=== PATIENT | female | born 1985 | race Caucasian/White ===

== ENCOUNTER 2017-07-05 04:22 | Inpatient (IN) | payer OTHER ==
--- NOTE | 2017-07-05 04:23 | EDPHY ---
H & P Time Seen by Provider: 07/05/17 04:23 HPI/ROS: HPI CHIEF COMPLAINT: Severe abdominal pain HISTORY OF PRESENT ILLNESS: This patient 31-year-old female she is otherwise healthy no significant medical history does not take any daily medications she presents emergency room with abdominal pain. She states around 6:00 p.m. 2 nights ago she develops with nausea and generalized crampy abdominal pain. Over the past 48 hr her abdominal pain has gotten worse and now rather severe the pain is located in right lower quadrant and pelvic region. She is most focally tender in her right lower quadrant. She endorses low-grade fever. She has had vomiting and nausea. No diarrhea. States the pain became worse tonight and decided come the emergency room by private vehicle. She does report to me that on her ride over by private vehicle every bump that she had caused her pain. Additionally she states she prefers not to lay flat or stand up straight because it causes or abdominal pain. She denies any back pain. Denies urinary symptoms. She does report to me she has irregular menstrual. She has a copper IUD. She denies being . She states she has been light spotting all month. Otherwise no significant vaginal discharge. The pain is rather sharp stabbing relentless. Currently 12/26. Past Medical History: No medical history Past Surgical History: No surgical history Social History: Lives locally denies drugs alcohol tobacco. Family History: Noncontributory ROS REVIEW OF SYSTEMS: A comprehensive 10 point review of systems is otherwise negative aside from elements mentioned in the history of present illness. Exam Constitutional appears uncomfortable however nontoxic, dehydrated on exam, triage nursing summary reviewed, vital signs reviewed, awake/alert. Eyes normal conjunctivae and sclera, EOMI, PERRLA. HENT normal inspection, atraumatic, dry mucous membranes, dry lips, no epistaxis, neck supple/ no meningismus, no raccoon eyes. Respiratory clear to auscultation bilaterally, normal breath sounds, no respiratory distress, no wheezing. Cardiovascular rate normal, regular rhythm, no murmur, no edema, distal pulses normal. Gastrointestinal tenderness palpation diffusely, worse in the right lower quadrant, additionally tenderness on bilateral adnexal pain on exam, no rebound , no guarding, normal bowel sounds, no distension, no pulsatile mass. Genitourinary no CVA tenderness. Musculoskeletal no midline vertebral tenderness, full range of motion, no calf swelling, no tenderness of extremities, no meningismus, good pulses, neurovascularly intact. Skin pink, warm, & dry, no rash, skin atraumatic. Neurologic awake, alert and oriented x 3, AAOx3, moves all 4 extremities equally, motor intact, sensory intact, CN II-XII intact, normal cerebellar, normal vision, normal speech. Psychiatric normal mood/affect. Heme/Lymph/Immune no lymphadenopathy. Differential diagnosis includes but is not limited to and in no particular order : Ruptured ovarian cyst, ovarian torsion, ectopic , acute appendicitis , appendicitis with perforation Bowel obstruction, gallbladder disease, diverticulitis, colitis, enteritis, perforated viscus, gastritis, GERD, esophagitis, urinary tract infection, pyelonephritis, kidney stones Medical Decision Making: Plan for this patient IV establishment with blood work , IV fluids 1 L normal saline, IV Dilaudid 1 mg for pain control, 4 mg IV Zofran , basic blood work, UA, test, proceed with CT scan abdomen pelvis with IV contrast re-evaluate. Re-evaluation: 0614AM: CT scan abdomen pelvis with IV contrast called to me by Dr. Tutu Bryan, this shows most likely acute appendicitis the appendix is dilated at 9.5 mm however unable to visualize the tip. There is a moderate amount of complex free fluid in the pelvic region. No large ovarian cyst. Dr. Matt Bryan feels this may be ruptured appendicitis. Additionally there is some small bowel loops that are inflamed. He questions if there is enteritis. Patient has not had any diarrhea. Her blood work has been reviewed shows elevated white blood cell count she does have significant tenderness on exam. I will consult surgery for further evaluation of this. 0620: I have consulted Dr. Cramer surgery about this patient. Given her findings on CT scan, white blood cell count abdominal pain. He will come and see and evaluate the patient. He does recommend the patient gets 1 g IV Invanz which I have ordered. She is getting a 3rd L fluid. And another mg of Dilaudid for acute pain control. Source: Patient Constitutional: Initial Vital Signs Temperature (C) 36.4 C 07/05/17 04:25 Heart Rate 100 07/05/17 04:25 Respiratory Rate 20 07/05/17 04:25 Blood Pressure 96/64 L 07/05/17 04:25 O2 Sat (%) 93 04/19/18 04:25 O2 Delivery Mode Nasal Cannula O2 (L/minute) 2 Allergies/Adverse Reactions: No Known Allergies Allergy (Unverified 07/05/17 04:25) Home Medications: Medication Instructions Recorded Multivitamins [Multivitamin (*)] 1 each PO DAILY 07/05/17 Naproxen Sodium [Aleve 220 MG (*)] 220 mg PO DAILY PRN 07/05/17 Medical Decision Making - Data Points Laboratory Results: Laboratory Results 07/05/17 04:40 07/05/17 04:40 Medications Given: Acetaminophen (Tylenol) 1,000 mg PO Q8H [facility] Stop: 01/01/18 09:14 Last Admin: 07/05/17 17:18 Dose: Not Given Enoxaparin Sodium (Lovenox) 30 mg SC BID [facility] Stop: 01/01/18 20:59 Last Admin: 07/05/17 20:46 Dose: 30 mg Hydromorphone HCl (Dilaudid) 0.2 - 0.4 mg IVP Q1HR PRN PRN Reason: Pain, Breakthrough Stop: 07/15/17 09:02 Last Admin: 07/05/17 17:16 Dose: 0.4 mg Lactated Ringer's (Lr) 1,000 mls @ 100 mls/hr IV CONT [facility] Stop: 01/01/18 09:29 Last Admin: 07/05/17 21:52 Dose: 1,000 mls Ketorolac Tromethamine (Toradol) 30 mg IVP Q6H [facility] Stop: 07/10/17 20:29 Last Admin: 07/05/17 20:46 Dose: 30 mg Discontinued Medications Cefazolin Sodium (Ancef Syringe) Confirm Administered Dose 2 gm .ROUTE .STK-MED ONE Stop: 07/05/17 07:07 Last Admin: 07/05/17 08:17 Dose: Not Given Cefazolin Sodium (Ancef Syringe) Confirm Administered Dose 1 gm .ROUTE .STK-MED ONE Stop: 07/05/17 07:33 Last Admin: 07/05/17 08:17 Dose: 1 gm Cefazolin Sodium (Ancef Syringe) Confirm Administered Dose 1 gm .ROUTE .STK-MED ONE Stop: 07/05/17 08:40 Last Admin: 07/05/17 17:18 Dose: Not Given Ertapenem (Invanz) 1 gm IV EDNOW ONE PRN Reason: Protocol Stop: 07/05/17 06:20 Last Admin: 07/05/17 06:56 Dose: 1 gm Fentanyl (Sublimaze) 25 - 100 mcg IVP Q5M PRN PRN Reason: PACU, IMMEDIATE Pain control Stop: 07/05/17 08:25 Last Admin: 07/05/17 09:31 Dose: 25 mcg Heparin Sodium (Porcine) (Heparin Sc Injection) Confirm Administered Dose 10, 000 unit .ROUTE .STK-MED ONE Stop: 07/05/17 07:07 Last Admin: 07/05/17 08:19 Dose: 10,000 unit Heparin Sodium (Porcine) (Heparin Sc Injection) Confirm Administered Dose 5,000 unit .ROUTE .STK-MED ONE Stop: 07/05/17 07:32 Last Admin: 07/05/17 08:37 Dose: 5,000 unit Heparin Sodium (Porcine) (Heparin Sc Injection) Confirm Administered Dose 5,000 unit .ROUTE .STK-MED ONE Stop: 07/05/17 08:40 Last Admin: 07/05/17 17:17 Dose: Not Given Hydromorphone HCl (Dilaudid) 1 mg IVP EDNOW ONE Stop: 07/05/17 04:39 Last Admin: 07/05/17 04:49 Dose: 1 mg Hydromorphone HCl (Dilaudid) 1 mg IVP EDNOW ONE Stop: 07/05/17 06:21 Last Admin: 07/05/17 06:22 Dose: 1 mg Sodium Chloride (Ns) 1,000 mls @ 0 mls/hr IV EDNOW ONE; Wide Open PRN Reason: Protocol Stop: 07/05/17 04:39 Last Admin: 07/05/17 04:47 Dose: 1,000 mls Sodium Chloride (Ns) 1,000 mls @ 0 mls/hr IV ONCE ONE PRN Reason: Wide Open Stop: 07/05/17 04:44 Last Admin: 07/05/17 04:48 Dose: 1,000 mls Sodium Chloride (Ns) 1,000 mls @ 0 mls/hr IV ONCE ONE PRN Reason: Wide Open Stop: 07/05/17 06:21 Last Admin: 07/05/17 06:22 Dose: 1,000 mls Lactated Ringer's (Lr) 1,000 mls @ 0 mls/hr IV ONCE ONE; TKO PRN Reason: Protocol Stop: 07/05/17 06:59 Last Admin: 07/05/17 07:26 Dose: 1,000 mls Ketorolac Tromethamine (Toradol) 30 mg IVP Q6HRS [facility] Stop: 07/10/17 11:59 Last Admin: 07/05/17 18:41 Dose: Not Given Midazolam HCl (Versed) 2 mg IVP ONCALL ONE Stop: 07/05/17 07:24 Last Admin: 07/05/17 07:33 Dose: 2 mg Ondansetron HCl (Zofran) 4 mg IVP EDNOW ONE Stop: 07/05/17 04:39 Last Admin: 07/05/17 04:48 Dose: 4 mg Departure - Departure Disposition: To OP Cath/Surgery Clinical Impression: Peritonitis Acute appendicitis Qualifiers: Acute appendicitis type: with localized peritonitis Qualified Code(s): K35.3 - Acute appendicitis with localized peritonitis
[2017-07-05] MEDS ORDERED: ONDANSETRON 4 MG/2 ML VIAL IVP ONE (04:38)
[2017-07-05] MEDS ORDERED: HYDROmorphONE/DILAUDID 2 MG/ML INJ IVP ONE ×2 (04:38→06:20)
[2017-07-05] MEDS ORDERED: NS 1,000 ML IV ONE ×3 (04:38→06:20)
[2017-07-05] MEDS ORDERED: IOPAMIDOL (ISOVUE-300) 100 ML BTL ONE (04:56)
[2017-07-05 05:07] LABS: PLATELET COUNT 292 10^3/uL (150-400)
[2017-07-05] MEDS ORDERED: ERTAPENEM 1 GM VIAL IV ONE (06:19)
[2017-07-05] MEDS ORDERED: LR 1,000 ML IV ONE (06:58)
[2017-07-05] MEDS ORDERED: ceFAZolin 1 GM/5 ML SYR ONE ×3 (07:06→08:39)
[2017-07-05] MEDS ORDERED: HEPARIN 5,000 UNIT/0.5 ML SYR ONE ×3 (07:06→08:39)
[2017-07-05] MEDS ORDERED: MIDAZOLAM 2 MG/2 ML VIAL IVP ONE (07:23)
--- NOTE | 2017-07-05 07:24 | PDANEPAE ---
ANE Past Medical History - Pulmonary History Hx Oxygen in Use at Home: No Hx Sleep Apnea: No - Endocrine History Hx Diabetes: No ANE Review of Systems Review of Systems: ANE Patient History - Allergies Allergies/Adverse Reactions: No Known Allergies Allergy (Unverified 07/05/17 04:25) - NPO status NPO Since - Liquids (Date): 07/05/17 NPO Since - Solids (Date): 07/03/17 - Anes Hx Anes Hx: no prior problems - Smoking Hx Smoking Status: Former smoker ANE Labs/Vital Signs - Labs Result Diagrams: 07/05/17 04:40 07/05/17 04:40 - Vital Signs Blood Pressure: 116/69 Heart Rate: 97 Respiratory Rate: 16 O2 Sat (%): 100 Height: 170.18 cm Weight: 54.431 kg ANE Physical Exam - Airway Neck exam: FROM Mallampati Score: Class 1 Mouth exam: normal dental/mouth exam - Pulmonary Pulmonary: no respiratory distress, no rales or rhonchi, clear to auscultation - Cardiovascular Cardiovascular: regular rate and rhythym, no murmur, rub, or gallop - ASA Status ASA Status: II, E ANE Anesthesia Plan Anesthesia Plan: general endotracheal anesthesia
[2017-07-05] MEDS ORDERED: ONDANSETRON 4 MG/2 ML VIAL IVP PRN ×2 (07:25→09:03)
[2017-07-05] MEDS ORDERED: NALOXONE HCL 0.4 MG/ML INJ IVP PRN (07:25)
[2017-07-05] MEDS ORDERED: NS 500 ML IV PRN (07:25)
[2017-07-05] MEDS ORDERED: ceFAZolin 2 GM/SWFI 20 ML SYR IVP ONE (07:25)
[2017-07-05] MEDS ORDERED: HYDROCODONE/APAP 5/325 TAB PO PRN (07:25)
[2017-07-05] MEDS ORDERED: MEPERIDINE 25 MG/ML SYR IVP PRN (07:25)
[2017-07-05] MEDS ORDERED: PROMETHAZINE HCL 25 MG/ML INJ IVP PRN (07:25)
--- NOTE | 2017-07-05 07:29 | GHP ---
[f rep st] PREOP HISTORY AND PHYSICAL DATE OF ADMISSION: 07/05/2017 ADMITTING DIAGNOSIS: Acute appendicitis with appendicolith and peritonitis. HISTORY: The patient is a 31-year-old female who 2 nights ago at dinner felt nauseous after eating a large volume for dinner. She attributed to just the overeating. The pain was described as cramping and diffuse. She vomited all night to 11:15 the next morning (yesterday). The pain shifted to the right lower quadrant and was relentless. She slept poorly last night and came to the ER. She is not hungry at this point. A CT scan shows appendicitis with appendicolith and peritoneal fluid. Note is made that her IUD does not appear to be precisely in place and she felt that had been the cause of her discomfort. She has had a URI recently. She has not had diarrhea or antibiotics. She traveled to [place] for 3 weeks in March and February and was back for a week in May. She has had no prior similar symptoms. She has had no abdominal surgery. She has no history of inflammatory bowel disease. SOCIAL HISTORY: She does not smoke tobacco. She does use marijuana. She has approximately 1 drink a day. ALLERGIES: She has no known drug allergies. MEDICATIONS: She is not taking medications. PAST MEDICAL HISTORY: She does have an IUD is mentioned. She has had wisdom teeth extracted. She has a right neck mass, which is a compilation of solid and cystic. It has been biopsied. She has been told it is negative. She has not been told what the cell type was. There is no history of rheumatic fever, tuberculosis, hepatitis, or transfusions. REVIEW OF SYSTEMS: She does have eczema. She has factor V Leiden deficiency discovered when her father and her uncle were tested and the rest of the family were found to be positive. Based on that, the rest of the family was tested. She has not had any deep venous clots. There are no limits on her activities. No history of steroid use. PHYSICAL EXAMINATION: GENERAL: She is awake and alert. She has received pain medication. She feels quite dry at this time. HEENT: Her skull is normocephalic and atraumatic. She is awake, alert, oriented, anxious. NECK: There is a right neck mass which measures approximately 2 cm in the cephalocaudad direction and approximately 1.25 cm in diameter. LUNGS: Clear to auscultation. CARDIAC: Exam shows a tachycardia. ABDOMEN: She is thin and complains that she is bloated, but that is difficult to appreciate. Psoas and obturator signs are negative. She is tender with cough in the right lateral abdomen, described as 8/10. There are no bowel sounds. To palpation, left upper quadrant is 1/10, left mid abdomen is 1, left lower quadrant is 4, epigastrium is 1, periumbilical area is 2, suprapubic area is 5, right upper quadrant is 1, right mid abdomen is 5, right lower quadrant is 8. LYMPHATICS: There is no cervical, supraclavicular, axillary or inguinal lymphadenopathy. LABORATORY DATA: Her white blood cell count is 16.5 with 84% neutrophils. Her hematocrit is 34. Lactic acid is 0.8. Her glucose is 122. Her total bilirubin is 2. Her unconjugated bilirubin is 1.6. Her beta HCG is negative. On CT she has diffuse peritoneal fluid, periappendiceal stranding, appendiceal wall thickening and an appendicolith. IMPRESSION: Patient with free fluid in the peritoneum, appendicolith, periappendiceal stranding, all consistent with acute appendicitis. I feel that with the free fluid in her belly and her physical findings, she has a diffuse peritonitis consistent with appendiceal rupture. PLAN: Laparoscopic (possibly open) appendectomy. I have told her there is a high-degree of probability that I will be placing a drain. The patient understands the planned procedure and agrees to proceed as outlined. /[id number]/MODL MTDD
[2017-07-05] MEDS ORDERED: ONDANSETRON 4 MG/2 ML VIAL ONE (07:32)
[2017-07-05] MEDS ORDERED: GLYCOPYRROLATE 0.2 MG/1 ML VIAL ONE (07:32)
[2017-07-05] MEDS ORDERED: PROPOFOL 200 MG/20 ML VIAL ONE (07:32)
[2017-07-05] MEDS ORDERED: fentaNYL 100 MCG/2 ML INJ ONE ×2 (07:32→09:21)
[2017-07-05] MEDS ORDERED: NEOSTIGMINE METHYLSULFATE 3 MG/3 ML SYR ONE (07:32)
[2017-07-05] MEDS ORDERED: DEXAMETHASONE 4 MG/ML VIAL ONE ×2 (07:33)
[2017-07-05] MEDS ORDERED: LIDOCAINE 2% 5 ML SDV ONE (07:33)
[2017-07-05] MEDS ORDERED: ROCURONIUM 50 MG/5 ML VIAL ONE (07:33)
[2017-07-05] MEDS ORDERED: KETOROLAC 30 MG/1 ML SDV ONE (07:33)
[2017-07-05] MEDS ORDERED: HYDROmorphONE/DILAUDID 1 MG/ML INJ IVP PRN (09:03)
--- NOTE | 2017-07-05 09:14 | POSTANESTH ---
Post Anesthetic Evaluation Cardiovascular Status: Normal, Stable Respiratory Status: Normal, Stable, Similar to Pre-op Cond. Level of Consciousness/Mental Status: Can Participate in Eval, Alert and Oriented Pain Control: Adequate, Prn Tx Ordered Nausea/Vomiting Control: Adequate, Prn Tx Ordered Complications Possibly Related to Anesthesia: None Noted
--- NOTE | 2017-07-05 09:19 | POSTOPPROG ---
Post Op Note Date of Operation: 07/05/17 Surgeon: Manuel Cramer Anesthesia: GET(General Endotracheal) Pre-op Diagnosis: acute appendicitis with appendicolith and peritonitis Post-op Diagnosis: acute gangrenous appendicitis with appendicolith and peritonitis Indication: acute appendicitis with appendicolith and peritonitis Procedure: laparoscopic appendectomy Findings: acute gangrenous appendicitis with appendicolith and peritonitis Inf/Abcess present in the surg proc area at time of surgery?: Yes Depth: Deep Incisional (Fascial) EBL: Minimal Total fluids administered: 1250 Complications: none Drains: Michael Duran Specimen(s): appendix, peritoneal fluid cultures
[2017-07-05] MEDS: fentaNYL 100 MCG/2 ML INJ IVP PRN ×2 (09:23→09:31)
--- NOTE | 2017-07-05 09:50 | GOP ---
[f rep st] OPERATIVE REPORT DATE OF OPERATION: 07/05/2017 SURGEON: Manuel Cramer MD ANESTHESIA: General endotracheal. PREOPERATIVE DIAGNOSIS: Acute appendicitis with appendicolith and peritonitis. POSTOPERATIVE DIAGNOSIS: Acute gangrenous appendicitis with appendicolith and peritonitis. PROCEDURE PERFORMED: Laparoscopic appendectomy. FINDINGS: Acute gangrenous appendicitis with appendicolith and peritonitis. ESTIMATED BLOOD LOSS: Minimal. INDICATIONS: Acute appendicitis with appendicular peritonitis. DESCRIPTION OF PROCEDURE: The patient was placed on the operating table in supine position. After induction of adequate general endotracheal anesthesia, the abdomen was carefully clipped, prepped, and draped. A surgical time-out was carried out and agreed to by all members of the operative team. A curvilinear incision was planned in the umbilicus, a linear 5 mm oblique incision was planned in the left lower quadrant, and a transverse 5 mm incision was planned in the suprapubic area. All incisions were made sharply. The incisions were deepened with Bovie electrocautery and at the infraumbilical site with a spreading technique. The anterior rectus sheath was identified and elevated between Allis clamps. It was incised in the midline. A pursestring of #0 PDS was placed. The peritoneum was entered. An 11-12 mm Jes trocar was positioned. Intra-abdominal insufflation was carried out to 15 mmHg. 5 mm ports were placed through the other 2 sites. Purulent material was found in the pelvis. This was aspirated and sent for culture. The omentum was adherent to the appendix. It was carefully from the appendix. The appendix was elevated. The mesoappendix was divided down to the cecum using the Harmonic scalpel. A 45 mm Endo-LORENZO stapler was used to transect the cecum so a cuff of cecum will be with the appendix to assure adequate closure. The specimen was placed in the EndoCatch bag and delivered via the umbilical port site. Copious irrigation was carried out in all quadrants. It was carefully aspirated. Photographic documentation of the ovaries and uterus carried out. The small bowel was run for a distance of approximately 3 feet. There was no evidence of mesenteric adenitis. There was no evidence of Meckel diverticulum. Ports were removed under direct vision. At the umbilical site, an inverted simple suture of #0 PDS was placed in the midpoint of the infraumbilical midline fascial incision. This was tied, and then the pursestring was tied. Subcutaneous tissues well irrigated. Hemostasis was excellent. All incisions were closed with inverted simple sutures of #4-0 Vicryl. Mastisol and Steri- Strips were placed. Band-Aids were placed over the suprapubic site and the umbilical site. The left lower quadrant does have a 10 flat ERIN drain coming out through it. The ERIN drain had been placed in the pelvis. The patient does have a Zaldivar catheter, which was placed at the initiation of surgery. She was transferred to Recovery in stable and satisfactory condition. TOTAL FLUIDS: 1250 mL. COMPLICATIONS: None. DRAINS: A ERIN in the pelvis. /[id number]/MODL MTDD
[2017-07-05] MEDS: HYDROmorphONE/DILAUDID 2 MG/ML INJ IVP PRN ×3 (10:58→17:16)
--- NOTE | 2017-07-05 11:00 | PDMN ---
Medical Necessity Medical necessity: Patient meets inpatient criteria per physician note and [facility] [place] S -[phone] Appendectomy, with Abscess or Peritonis, by Laparoscopy - 2 days postop - ( acute gangrenous appendicitis w/peritonitis; ERIN drain; anticipated LOS > 2 midnights for ongoing IV antibiotics, slow progression of diet.)
[2017-07-05] MEDS: LR 1,000 ML IV SCH ×2 (11:32→21:52)
[2017-07-05] MEDS: KETOROLAC 15 MG/1 ML SDV IVP SCH ×3 (14:25→20:46)
[2017-07-05] MEDS: ACETAMINOPHEN 500 MG TAB PO SCH (17:18)
[2017-07-05] MEDS: ENOXAPARIN 30 MG/0.3 ML SYR SC SCH (20:46)
[2017-07-06] MEDS: HYDROmorphONE/DILAUDID 2 MG/ML INJ IVP PRN (00:17)
[2017-07-06] MEDS: ACETAMINOPHEN 500 MG TAB PO SCH ×3 (00:51→18:46)
[2017-07-06] MEDS: KETOROLAC 15 MG/1 ML SDV IVP SCH ×4 (02:30→20:40)
[2017-07-06] MEDS: ERTAPENEM 1 GM VIAL IV SCH (08:44)
[2017-07-06] MEDS: ENOXAPARIN 30 MG/0.3 ML SYR SC SCH ×2 (08:45→20:40)
--- NOTE | 2017-07-06 08:57 | SOAPPROG ---
SOAP Progress Note Assessment/Plan: 07/06/17 08:53 POD#1 Assessment: Doing well, passing gas, feels much better. + bowel sounds. afebrile ERIN output still turbid. Will continue antibiotics for 10-14 days. Identification and C&S pending. Patient at high risk for abscess formation Plan: Continue supportive care. allow clear liquids continue ERIN check CBC in AM Subjective: I feel better when I'm up walking. Objective: Vital Signs Temp Pulse Resp BP Pulse Ox 36.9 C 78 14 96/62 L 96 07/06/17 07:40 07/06/17 07:40 07/06/17 07:40 07/06/17 07:40 07/06/17 07:40 Microbiology 07/05/17 08:09 Gram Stain - Final Appendix - Eswab 07/05/17 07/06/17 07/07/17 05:59 05:59 05:59 Intake Total 5750 Output Total 1135 Balance 4615 - Time Spent With Patient Time Spent With Patient: 25 - Pending Discharge Pending Discharge Within 24 Hours: No Pending Discharge Within 48 Hours: No Physical Exam - Physical Exam General Appearance: WD/WN, alert, mild distress Neck: non-tender, full range of motion, supple Respiratory: chest non-tender, lungs clear, normal breath sounds Cardiac/Chest: regular rate, rhythm Abdomen: normal bowel sounds, non-tender, soft, other (ERIN with turbid fluid - 225cc /24 hours post op) Pelvic Exam: deferred Rectal: deferred Back: Normal inspection Skin: normal color, warm/dry Neuro/Psych: no motor/sensory deficits, alert, normal mood/affect ICD10 Worksheet Patient Problems: Problems Problem Status Onset Acute appendicitis Acute Peritonitis Acute
[2017-07-06] MEDS: LR 1,000 ML IV SCH (10:30)
[2017-07-07] MEDS: ACETAMINOPHEN 500 MG TAB PO SCH ×3 (01:10→18:11)
[2017-07-07] MEDS: KETOROLAC 15 MG/1 ML SDV IVP SCH ×4 (02:42→20:35)
[2017-07-07] MEDS: LR 1,000 ML IV SCH ×2 (02:43→11:51)
[2017-07-07 05:13] LABS: PLATELET COUNT 169 10^3/uL (150-400)
--- NOTE | 2017-07-07 08:07 | SOAPPROG ---
SOAP Progress Note Assessment/Plan: 07/06/17 08:53 POD#1 Assessment: Doing well, passing gas, feels much better. + bowel sounds. afebrile ERIN output still turbid. Will continue antibiotics for 10-14 days. Identification and C&S pending. Patient at high risk for abscess formation Plan: Continue supportive care. allow clear liquids continue ERIN check CBC in AM 07/07/17 07:56 POD#2 Assessment: C/o yellow green vaginal discharge. Etiology unclear - secondary infection from peritonitis? - note IUD malpositioned Passing flatus and stool, feels much better, + hungry, taking some liquids, Afebrile, WBC down, ERIN drainage less turbid. Plan: Continue ERIN and IV antibiotics, follow vaginal drainage, consider IUD removal Now that Urine output increasing will decrease IV fluids. Will not advance diet yet. Subjective: I'm note really hungry Objective: Vital Signs Temp Pulse Resp BP Pulse Ox 36.9 C 92 16 103/65 93 07/07/17 04:00 07/07/17 04:00 07/07/17 04:00 07/07/17 04:00 07/07/17 04:00 Microbiology 07/05/17 08:09 Gram Stain - Final Appendix - Eswab Laboratory Results 07/07/17 05:00 07/07/17 05:00 07/06/17 07/07/17 07/08/17 05:59 05:59 05:59 Intake Total 5750 2410 Output Total 1135 776 Balance 4615 1634 - Time Spent With Patient Time Spent With Patient: 25 - Pending Discharge Pending Discharge Within 24 Hours: No Pending Discharge Within 48 Hours: No Physical Exam - Physical Exam General Appearance: WD/WN, alert, mild distress Neck: full range of motion, supple Respiratory: lungs clear, normal breath sounds Cardiac/Chest: regular rate, rhythm Abdomen: normal bowel sounds, non-tender, soft Pelvic Exam: deferred Rectal: deferred Back: Normal inspection Skin: normal color, warm/dry Extremities: normal range of motion, non-tender, normal inspection Neuro/Psych: no motor/sensory deficits, alert, normal mood/affect, oriented x 3 ICD10 Worksheet Patient Problems: Problems Problem Status Onset Acute appendicitis Acute Peritonitis Acute
[2017-07-07] MEDS: ERTAPENEM 1 GM VIAL IV SCH (08:36)
[2017-07-07] MEDS ORDERED: ONDANSETRON 4 MG/2 ML VIAL IVP PRN (09:07)
[2017-07-07] MEDS: ENOXAPARIN 30 MG/0.3 ML SYR SC SCH ×2 (09:09→20:36)
[2017-07-08] MEDS: ACETAMINOPHEN 500 MG TAB PO SCH ×3 (00:56→19:38)
[2017-07-08] MEDS: KETOROLAC 15 MG/1 ML SDV IVP SCH ×3 (02:20→16:18)
[2017-07-08 05:55] LABS: PLATELET COUNT 205 10^3/uL (150-400)
[2017-07-08] MEDS: ERTAPENEM 1 GM VIAL IV SCH (09:03)
[2017-07-08] MEDS: ENOXAPARIN 30 MG/0.3 ML SYR SC SCH ×2 (09:03→21:13)
[2017-07-08] MEDS ORDERED: D5W 1/2 NS W/ 20 KCl/L 1,000 ML IV SCH (09:15)
[2017-07-08] MEDS ORDERED: AMOXICILLIN/CLAVULANATE POT 875/125 MG TAB PO SCH (09:30)
--- NOTE | 2017-07-08 09:47 | SOAPPROG ---
SOAP Progress Note Assessment/Plan: 07/06/17 08:53 POD#1 Assessment: Doing well, passing gas, feels much better. + bowel sounds. afebrile ERIN output still turbid. Will continue antibiotics for 10-14 days. Identification and C&S pending. Patient at high risk for abscess formation Continue supportive care. allow clear liquids continue ERIN check CBC in AM 07/07/17 07:56 POD#2 Assessment: C/o yellow green vaginal discharge. Etiology unclear - secondary infection from peritonitis? - note IUD malpositioned Passing flatus and stool, feels much better, + hungry, taking some liquids, Afebrile, WBC down, ERIN drainage less turbid. Plan: Continue ERIN and IV antibiotics, follow vaginal drainage, consider IUD removal Now that Urine output increasing will decrease IV fluids. Will not advance diet yet. 07/08/17 09:32 Assessment: Much improved! Had temp last PM but now resolved. Dr Go will see her today and consider IUD removal as it is potentially a retained fomiteand it is malpositioned. Cultures growing Streptococcus Constellatus and Klebsiella Pneumoniae Ssp Pneu. WBC down to 5.48K with 75% neutrophils. ERIN drainage now clear K low She is hungry. Plan: Will switch to oral agents from Invanz - Augmentin will treat K will advance diet will keep ERIN in place for 24 more hours Subjective: I'm feeling much better Objective: Vital Signs Temp Pulse Resp BP Pulse Ox 36.8 C 75 16 105/66 93 07/08/17 05:30 07/08/17 05:30 07/08/17 05:30 07/08/17 05:30 07/08/17 05:30 Microbiology 07/05/17 08:09 Gram Stain - Final Appendix - Eswab Laboratory Results 07/08/17 05:40 07/08/17 05:40 07/07/17 07/08/17 07/09/17 05:59 05:59 05:59 Intake Total 2410 2475 Output Total 776 1575 Balance 1634 900 - Time Spent With Patient Time Spent With Patient: 25 - Pending Discharge Pending Discharge Within 48 Hours: Yes Pending Discharge Date: 07/10/17 Pending Discharge Time: 11:00 Physical Exam - Physical Exam General Appearance: WD/WN, alert, no apparent distress Neck: non-tender, full range of motion, supple Respiratory: chest non-tender, lungs clear, normal breath sounds Cardiac/Chest: regular rate, rhythm Abdomen: normal bowel sounds, non-tender, soft, other (ERIN drainage ~ 50cc/24 and now clear) Pelvic Exam: deferred Rectal: deferred Back: Normal inspection Skin: normal color, warm/dry Lymphatic: no adenopathy Extremities: normal range of motion Neuro/Psych: no motor/sensory deficits, alert, normal mood/affect, oriented x 3 ICD10 Worksheet Patient Problems: Problems Problem Status Onset Acute appendicitis Acute Peritonitis Acute
--- NOTE | 2017-07-08 12:46 | SOAPPROG ---
[facility]IES[facility] Progress Note Assessment/Plan: Assessment: 31 y/o G0 POD #1 s/p laparoscopic appendectomy with Paraguard IUD malpositioned and embedded in her cervical canal Plan: The majority of the Paraguard IUD was removed today without difficulty. Pt tolerated the procedure well and feels less pelvic pressure and cramping. I feel that the right arm of the IUD is retained and likely embedded in the cervical canal. Because this is not causing her pain, I will not put her through an extensive procedure to remove it now while she is still recovering for her surgery and illness. I will see her in my office in 2-3 weeks for a consultation and we can schedule an ultrasound guided removal in our office. I will pre-medicate her with cytotec and Ibuprofen. 07/08/17 12:49 Subjective: I was consulted to see patient to evaluate the position of a Paraguard IUD. She is POD #1 s/p laparoscopic appendectomy and evacuation purulent peritonitis. On evaluation her CT scan demonstrated a Paraguard IUD to be located low in her cervical canal and tilted to the right side of her uterus. She reports she has had spotting and cramping for the last month and she was suspicious the IUD was malpositioned. She has care at [facility]. Objective: Vital Signs Temp Pulse Resp BP Pulse Ox 36.8 C 75 16 105/66 93 07/08/17 05:30 07/08/17 05:30 07/08/17 05:30 07/08/17 05:30 07/08/17 05:30 Microbiology 07/05/17 08:09 Gram Stain - Final Appendix - Eswab Laboratory Results 07/08/17 05:40 07/08/17 05:40 07/07/17 07/08/17 07/09/17 05:59 05:59 05:59 Intake Total 2410 2475 Output Total 728 5105 Balance 5626 900 - Time Spent With Patient Time Spent With Patient: 20 minute consultation taking patient's medical and gynecological history and removal of her Paraguard IUD. Physical Exam - Physical Exam General Appearance: WD/WN, alert, no apparent distress Neck: non-tender, full range of motion, supple Respiratory: chest non-tender, lungs clear, normal breath sounds Cardiac/Chest: regular rate, rhythm Abdomen: normal bowel sounds, soft Pelvic Exam: normal external exam, normal adnexa, tender uterus, other ( Paraguard IUD strings easily visualized and IUD removed with gentle traction, it was embedded in her cervical wall and upon removal the right arm remained in the cervix ) ICD10 Worksheet Patient Problems: Problems Problem Status Onset Acute appendicitis Acute Peritonitis Acute
[2017-07-08] MEDS ORDERED: metroNIDAZOLE 500 MG TAB PO SCH (14:00)
[2017-07-08] MEDS: AMOXICILLIN/CLAVULANATE POT 875/125 MG TAB PO SCH ×2 (14:01→21:12)
[2017-07-08] MEDS: IBUPROFEN 200 MG TAB PO SCH ×2 (15:05→23:02)
[2017-07-08] MEDS: POTASSIUM CL 10 MEQ TAB PO SCH ×2 (19:39→23:00)
[2017-07-09] MEDS: IBUPROFEN 200 MG TAB PO SCH ×3 (03:39→21:33)
[2017-07-09] MEDS: ACETAMINOPHEN 500 MG TAB PO SCH ×3 (03:39→21:30)
[2017-07-09 06:52] LABS: PLATELET COUNT 240 10^3/uL (150-400)
[2017-07-09] MEDS: ENOXAPARIN 30 MG/0.3 ML SYR SC SCH ×2 (08:16→21:29)
[2017-07-09] MEDS: AMOXICILLIN/CLAVULANATE POT 875/125 MG TAB PO SCH ×2 (08:16→21:30)
[2017-07-09] MEDS: POTASSIUM CL 10 MEQ TAB PO SCH (08:16)
[2017-07-09] MEDS ORDERED: ONDANSETRON DISINTEGRATING 4 MG TAB PO PRN (17:19)
[2017-07-10 06:12] LABS: PLATELET COUNT 285 10^3/uL (150-400)
[2017-07-10] MEDS: ACETAMINOPHEN 500 MG TAB PO SCH ×2 (06:23→09:24)
[2017-07-10] MEDS: IBUPROFEN 200 MG TAB PO SCH ×2 (06:24→09:21)
[2017-07-10 08:31] VITALS: BP 105/68
[2017-07-10] MEDS: ENOXAPARIN 30 MG/0.3 ML SYR SC SCH (09:21)
[2017-07-10] MEDS: AMOXICILLIN/CLAVULANATE POT 875/125 MG TAB PO SCH (09:21)
--- NOTE | 2017-07-10 12:59 | SOAPPROG ---
SOAP Progress Note Assessment/Plan: Assessment/Plan: 31 y F s/p lap appy for ruptured appendicitis, +factor V leiden , migrated IUD. Doing well today. Eating. Drain is out. Afebrile. +BM. Pain controlled. Cx's: multimicrobial, S to augmentin Eager to go home. Dipso: d/c to home today. Rx lovenox, augmentin, zofran. Limitations and f/u discussed. Also s/s of abscess/recurrent infection discussed. S: see above. O: alert, nad ctab rrr abd soft, +BS, inc cdi, drain site min serous drainage. 07/10/17 12:57 Objective: Vital Signs Temp Pulse Resp BP Pulse Ox 36.9 C 82 16 105/68 94 07/10/17 08:20 07/10/17 08:20 07/10/17 08:20 07/10/17 08:20 07/10/17 08:20 Microbiology 07/05/17 08:09 Gram Stain - Final Appendix - Eswab Laboratory Results 07/10/17 06:00 07/09/17 06:35 07/09/17 07/10/17 07/11/17 05:59 05:59 05:59 Intake Total 2205 875 Output Total 0 Balance 165 875 ICD10 Worksheet Patient Problems: Problems Problem Status Onset Acute appendicitis Acute Peritonitis Acute
== END 2017-07-10 13:00 | disposition home or self-care (01) | DRG 340 ==
LOC: FOB 10:18
PROVIDERS: ADMIT Surgery; ATTEND Surgery
PROC: 0DTJ4ZZ Resection of Appendix, Percutaneous Endoscopic Approach (ICD-10-PCS; principal; 2017-07-05 07:15)
DX: K35.3 Acute appendicitis with localized peritonitis (principal); T83.32XA Displacement of intrauterine contraceptive device, initial encounter; B95.5 Unspecified streptococcus as the cause of diseases classified elsewhere; B96.1 Klebsiella pneumoniae [K. pneumoniae] as the cause of diseases classified elsewhere
CPT/HCPCS: 96374; J0690; J1100; J1170; J1335; J1644; J1650; J1885; J2250; J2405; J2704; J2710; J3010; Q9967

== ENCOUNTER 2017-10-23 | Day surgery (SDC) | payer OTHER | END 2017-10-23 10:56 | disposition home or self-care (01) | PROC: 0UDB8ZX Extraction of Endometrium, Via Natural or Artificial Opening Endoscopic, Diagnostic (ICD-10-PCS; principal; 2017-10-23) | DX: T83.32XA Displacement of intrauterine contraceptive device, initial encounter (principal); Y76.8 Miscellaneous obstetric and gynecological devices associated with adverse incidents, not elsewhere classified; N83.202 Unspecified ovarian cyst, left side | CPT/HCPCS: 58558; 76998; C1782 ==